=== PATIENT | male | born 1990 | race Caucasian/White ===

== ENCOUNTER 2017-07-19 17:35 | Emergency (ER) | payer MEDICAID ==
[2017-07-19] MEDS ORDERED: FLUORESCEIN SOD/BENOXINATE HCL 20 DROPS/ML OPHT.BTL OP ONE (18:04)
[2017-07-19] MEDS ORDERED: TDAP ADULT 0.5 ML INJ (BOOSTRIX) IM ONE (18:10)
--- NOTE | 2017-07-19 18:10 | EDPHY ---
H & P Time Seen by Provider: 07/19/17 18:02 HPI/ROS: CHIEF COMPLAINT: left eye pain from sugar glider pet HISTORY OF PRESENT ILLNESS: 27-year-old male with out-of-date tetanus states that yesterday evening his pet sugar glider jumped onto his face and scratched his left eye. This was not a bite. This is a domesticated , indoor pet. He is complaining of blurry vision,. He denies headache. Denies nausea or vomiting. PHYSICAL EXAM (Prior to examination, patient consented to physical exam, hands were washed and my usual and customary physical exam procedures followed) 1) GENERAL: Well-developed, well-nourished, alert and oriented. Appears uncomfortable. 2) HEAD: Normocephalic 3) HEENT: sclera anicteric 4) LUNGS: Breathing comfortably. [5) OCULAR EXAM: Visual Acuity: noted from Nurse's notes. Complete resolution of ocular pain after instillation of Flurox Pupils:equal round and reactive to light EOMI. Scleral injection noted. Lids: no edema or swelling, upper and lower lids were everted and no foreign bodies were visualized, no areas of increased fluorescein uptake. Skin: no proptosis, no periorbital erythema or swelling, no vesicles, no pain with extraocular movements. Conjunctivae: not injected, no discharge, negative Ayaan test. Cornea: exam with fluorescein shows a linear area of increased uptake consistent with a corneal abrasion , see diagram. Anterior chamber:normal, no hyphema or hypopyon Smoking Status: Current some day smoker Constitutional: Initial Vital Signs Temperature (C) 36.7 C 07/19/17 17:39 Heart Rate 82 07/19/17 17:39 Respiratory Rate 17 07/19/17 17:39 Blood Pressure 108/75 07/19/17 17:39 O2 Sat (%) 95 07/19/17 17:39 O2 Delivery Mode Room Air Allergies/Adverse Reactions: No Known Allergies Allergy (Verified 07/19/17 17:38) Home Medications: Medication Instructions Recorded SUBOXONE 8mg/2mg 07/19/17 ED Images - Head Eyes Right/Left: 1 - Abrasion MDM/Departure - MDM Medications Given: Discontinued Medications Diphtheria/Tetanus/Acell Pertussis (Boostrix) 0.5 ml IM .ONCE ONE Stop: 07/19/17 18:11 Last Admin: 07/19/17 18:13 Dose: 0.5 ml Fluorescein Sodium/Benoxinate HCl (Flurox) 2 drops OP EDNOW ONE Stop: 07/19/17 18:05 Last Admin: 07/19/17 18:14 Dose: 1 droperette ED Course/Re-evaluation: Care of patient under supervision of secondary supervising physician Dr Maldonado . The patient has no evidence of globe rupture. He does have evidence of corneal abrasion. Will be started on Ocuflox and recommend close follow up with Ophthalmology. Tetanus has been updated. He declines analgesia. Given ophthalmology referral information and usual and customary discharge precautions instructions. - Depart Disposition: Home, Routine, Self-Care Clinical Impression: Left corneal abrasion Qualifiers: Encounter type: initial encounter Qualified Code(s): S05.02XA - Injury of conjunctiva and corneal abrasion without foreign body, left eye, initial encounter Condition: Good Instructions: Ofloxacin (Into the eye), Corneal Abrasion (ED) Additional Instructions: Return to the ER if you develop change in vision, new or worsening symptoms, worsening pain or any other symptoms that concern you. Referrals: Andi Jennings MD [Medical Doctor] - 1-2 days without fail (Dr. Andi Jennings is an cardiology coordinator)
[2017-07-19] MEDS ORDERED: OFLOXACIN 0.3% SOLN PREPACK OPHT.BTL TAKEHOME ONE (18:20)
[2017-07-19 18:28] VITALS: BP 108/78
== END 2017-07-19 18:28 | disposition home or self-care (01) ==
DX: S05.02XA Injury of conjunctiva and corneal abrasion without foreign body, left eye, initial encounter (principal); F17.200 Nicotine dependence, unspecified, uncomplicated; Z23 Encounter for immunization; W55.89XA Other contact with other mammals, initial encounter

== ENCOUNTER 2017-08-22 08:22 | Emergency (ER) | payer MEDICAID ==
--- NOTE | 2017-08-22 08:42 | EDPHY ---
HPI/HX/ROS/PE/MDM Narrative: CHIEF COMPLAINT: Left arm swollen HPI: This patient is a 27 year old male with no significant past medical history. Two days ago, he used IV heroin. He states "I shot up and my arm got really swollen". Yesterday, his left forearm became red and swollen around the injection site. He denies fever. He denies any recent trauma or illness. No chest pain, shorteness of breath, vomiting, diarrhea, urinary complaints, or other associate symptoms. REVIEW OF SYSTEMS: Aside from elements discussed in the HPI, a comprehensive 10-point review of systems was reviewed and is negative. PMH: Jaw surgery. SOCIAL HISTORY: . Lives in [place]. Employed. PHYSICAL EXAM: General:Patient is alert, in no acute distress. Respiratory:No respiratory distress. Breath sounds normal bilaterally. Cardiovascular: Regular rate and rhythm. Strong peripheral pulses. Normal cap refill. Skin: Normal color. No rash. Warm and dry. Extremities: Left upper extremity: Area of tenderness and erythema measuring 10cm to the left proximal volar forearm. No lymphatic streaking. Neuro: Oriented x3. Normal motor function. Normal sensory function. ED Course: 27 y/o male presents with tenderness and erythema over the left proximal volar forearm secondary to IV heroin injection two days ago. Plan for US RUE for further evaluation. 11:30 US negative for abscess. Plan to administer 1gm Ancef. Plan for labs including CBC, chemistries. Plan to discharge patient home in good condition with prescription for Keflex for cellulitis. He will return to the emergency department in 48 hours for recheck. Follow up and return precautions discussed. He is comfortable with this plan. MDM: This patient presents with likely forearm cellulitis secondary to IV drug use, although US does not explicitly discuss superficial veins, so superficial thrombophlebitis is also a possibility. He is afebrile and non-toxic and therefore appropriate for at least a trial of outpatient therapy. He was given a dose of IV cefazolin here in the ED and will be discharged on Keflex. The patient certainly has numerous MRSA risk factors but lack of abscess suggests non-MRSA infection so we will start with more narrowed coverage. I marked patient's cellulitis and instructed him to return for re-check tomorrow. Of note, I ordered labs which were subsequently canceled by the lab for unclear reasons. - Data Points Imaging: Discussed imaging studies w/ call center consultant Radiologist Medications Given: Discontinued Medications Cefazolin Sodium/Dextrose (Ancef 1 Gm (Premix)) 50 mls @ 200 mls/hr IV EDNOW ONE PRN Reason: Protocol Stop: 08/22/17 11:40 Last Admin: 08/22/17 11:38 Dose: 50 mls General Time Seen by Provider: 08/22/17 08:39 Initial Vital Signs: Initial Vital Signs Temperature (C) 36.6 C 08/22/17 08:25 Heart Rate 84 08/22/17 08:25 Respiratory Rate 17 08/22/17 08:25 Blood Pressure 114/76 08/22/17 08:25 O2 Sat (%) 100 08/22/17 08:25 O2 Delivery Mode Room Air Allergies/Adverse Reactions: No Known Allergies Allergy (Verified 08/23/17 15:30) Home Medications: Medication Instructions Recorded SUBOXONE 8mg/2mg 07/19/17 Cephalexin [Keflex] 500 mg PO Q6H #28 cap 08/22/17 Departure - Departure Disposition: Home, Routine, Self-Care Clinical Impression: Cellulitis Condition: Good Instructions: Cephalexin (By mouth), Cellulitis (ED), Narcotic Abuse (ED) Additional Instructions: 1. Take Keflex as prescribed. 2. Return to the emergency department in 48 hours to re-check your arm. 3. Return to the Emergency Department for fever, increasing redness, discharge from wound, increasing pain or other worsening of condition. Referrals: NILA LYNNE [Other] - As per Instructions Stand Alone Forms: Work Excuse Prescriptions: Cephalexin [Keflex] 500 mg PO Q6H #28 cap Report Scribed for: Ezekiel Panda Report Scribed by: Nita Alvarenga Date of Report: 08/22/17 Time of Report: 08:41 Physician Review and Approval Statement: Portions of this note were transcribed by an ED scribe. I personally performed the history, physical exam, and medical decision making; and confirm the accuracy of the information in the transcribed note.
[2017-08-22 12:02] VITALS: BP 117/65
== END 2017-08-22 12:35 | disposition home or self-care (01) ==
DX: L03.114 Cellulitis of left upper limb (principal)
CPT/HCPCS: 96374; J0690

== ENCOUNTER 2017-08-23 15:29 | Emergency (ER) | payer MEDICAID ==
--- NOTE | 2017-08-23 16:08 | EDPHY ---
H & P Stated Complaint: WORSENING CELLULITIS L ARM, TAKING KEFLEX DIRECTED X 24 HRS Time Seen by Provider: 08/23/17 15:38 HPI/ROS: CHIEF COMPLAINT: Left forearm cellulitis HISTORY OF PRESENT ILLNESS: 27-year-old male presents with left forearm cellulitis. IVDA 2 days ago, injected just below left antecubital fossa. Onset of pain, redness and swelling a few hours later. He was seen in this emergency department yesterday. Left upper extremity ultrasound revealed no evidence of abscess. He was given 1 dose of IV Ancef and a prescription for Keflex. He has been taking Keflex as prescribed. Today the pain and swelling have subsided quite a bit, but the redness has extended out of the marked area. No fever. REVIEW OF SYSTEMS: complete 10 point ROS negative except at noted in the HPI - Personal History Current Tetanus/Diphtheria Vaccine: Yes Current Tetanus Diphtheria and Acellular Pertussis (TDAP): Yes Tetanus Vaccine Date: 2017 - Medical/Surgical History Hx Asthma: No Hx Chronic Respiratory Disease: No Hx Diabetes: No Hx Cardiac Disease: No Hx Renal Disease: No Hx Cirrhosis: No Hx Alcoholism: No Hx HIV/AIDS: No Hx Splenectomy or Spleen Trauma: No Other PMH: jaw surgery - Social History Smoking Status: Current some day smoker - Physical Exam Exam: Alert and oriented, pleasant Extremities: Left upper extremity-faint erythema on the forearm that extends beyond the marked border on the medial aspect of the forearm, but has receded proximally, slight tenderness, no swelling Skin: Intact, no fluctuance Neuro: Motor and sensory intact Vascular: Capillary refill brisk distally. Constitutional: Initial Vital Signs Temperature (C) 36.8 C 08/23/17 15:32 Heart Rate 80 08/23/17 15:32 Respiratory Rate 16 08/23/17 15:32 Blood Pressure 123/67 H 08/23/17 15:32 O2 Sat (%) 98 08/23/17 15:32 O2 Delivery Mode Room Air Allergies/Adverse Reactions: No Known Allergies Allergy (Verified 08/23/17 15:30) Home Medications: Medication Instructions Recorded SUBOXONE 8mg/2mg 07/19/17 Cephalexin [Keflex] 500 mg PO Q6H #28 cap 08/22/17 Medical Decision Making ED Course/Re-evaluation: This patient presents with left arm cellulitis after IV drug abuse. I compared his forearm today to a photo taken yesterday. His infection has substantially improved overall. We will remark the area of erythema and give him another dose of IV Ancef. He will return tomorrow for worsening symptoms. Otherwise I will recheck him on Monday. Differential Diagnosis: Includes though is not limited to worsening cellulitis, abscess, DVT, lymphangitis - Data Points Laboratory Results: Laboratory Results 08/23/17 16:03 08/23/17 16:03 08/23/17 08/23/17 16:03 16:03 WBC 9.43 10^3/uL 10^3/uL (3.80-9.50) RBC 5.30 10^6/uL 10^6/uL (4.40-6.38) Hgb 15.8 g/dL g/dL (13.7-17.5) Hct 46.6 % % (40.0-51.0) MCV 87.9 fL fL (81.5-99.8) MCH 29.8 pg pg (27.9-34.1) MCHC 33.9 g/dL g/dL (32.4-36.7) RDW 13.0 % % (11.5-15.2) Plt Count 267 10^3/uL 10^3/uL (150-400) MPV 9.1 fL fL (8.7-11.7) Neut % (Auto) 54.8 % % (39.3-74.2) Lymph % (Auto) 33.0 % % (15.0-45.0) [place] % (Auto) 8.4 % % (4.5-13.0) Eos % (Auto) 3.0 % % (0.6-7.6) Baso % (Auto) 0.7 % % (0.3-1.7) Nucleat RBC Rel Count 0.0 % % (0.0-0.2) Absolute Neuts (auto) 5.17 10^3/uL 10^3/uL (1.70-6.50) Absolute Lymphs (auto) 3.11 10^3/uL H 10^3/uL (1.00-3.00) Absolute Monos (auto) 0.79 10^3/uL 10^3/uL (0.30-0.80) Absolute Eos (auto) 0.28 10^3/uL 10^3/uL (0.03-0.40) Absolute Basos (auto) 0.07 10^3/uL 10^3/uL (0.02-0.10) Absolute Nucleated RBC 0.00 10^3/uL 10^3/uL (0-0.01) Immature Gran % 0.1 % % (0.0-1.1) Immature Gran # 0.01 10^3/uL 10^3/uL (0.00-0.10) Sodium 143 mEq/L mEq/L (135-145) Potassium 4.0 mEq/L mEq/L (3.3-5.0) Chloride 103 mEq/L mEq/L (97-110) Carbon Dioxide 25 mEq/l mEq/l (22-31) Anion Gap 15 mEq/L mEq/L (8-16) BUN 13 mg/dL mg/dL (7-23) Creatinine 0.9 mg/dL mg/dL (0.7-1.3) Estimated GFR > 60 Glucose 103 mg/dL H mg/dL (70-100) Calcium 9.5 mg/dL mg/dL (8.5-10.4) Medications Given: Discontinued Medications Cefazolin Sodium/Dextrose (Ancef 1 Gm (Premix)) 50 mls @ 200 mls/hr IV EDNOW ONE PRN Reason: Protocol Stop: 08/23/17 16:18 Last Admin: 08/23/17 16:11 Dose: 50 mls Departure - Departure Disposition: Home, Routine, Self-Care Clinical Impression: Cellulitis Qualifiers: Site of cellulitis: extremity Site of cellulitis of extremity: upper extremity Laterality: left Qualified Code(s): L03.114 - Cellulitis of left upper limb Condition: Good Instructions: Cellulitis (ED) Additional Instructions: Return for worsening symptoms or any concerns. Followup without fail on Monday for recheck. Referrals: NILA LYNNE [Other] - As per Instructions
[2017-08-23 16:10] LABS: PLATELET COUNT 267 10^3/uL (150-400)
[2017-08-23 16:51] VITALS: BP 115/88
== END 2017-08-23 16:51 | disposition home or self-care (01) ==
DX: L03.114 Cellulitis of left upper limb (principal); F17.200 Nicotine dependence, unspecified, uncomplicated
CPT/HCPCS: 96365; J0690